=== PATIENT | male | born 1970 | race Two or more races ===

== ENCOUNTER 2023-05-08 15:20 | Inpatient (IN) | payer MEDICAID ==
[~2023-05-08] VITALS: Ht 167.6 cm; Wt 104.3 kg
[2023-05-08] MEDS ORDERED: DIAZEPAM 5 MG/ML 2ML CPJ IV NR (18:30)
[2023-05-08 18:38] LABS: BASOPHILS % 0.4 % (0.0-2.0); EOSINOPHILS % 1.1 % (0.0-5.0); HEMATOCRIT. 47.7 % (42.0-52.0); HEMOGLOBIN. 15.6 g/dL (14.0-18.0); LYMPHOCYTES % 29.4 % (20.0-50.0); MEAN CORPUSCULAR HEMOGLOBIN 30.2 pg (28.0-32.0); MEAN CORPUSCULAR HGB CONC 32.6 g/dL (31.0-37.0); MEAN CORPUSCULAR VOLUME 92.5 fL (80.0-94.0); MEAN PLATELET VOLUME 7.9 fl (7.4-10.4); MONOCYTES % 12.5 % (2.0-8.0); NEUTROPHILS % 56.6 % (40.0-76.0); PLATELET 326 x1000/uL (130-400); RED BLOOD CELL COUNT 5.16 mill/uL (4.7-6.1); WHITE BLOOD COUNT 7.4 x1000/uL (4.5-11.0)
[2023-05-08 18:46] LABS: ALANINE AMINOTRANSFERASE 64 IU/L (10-49); ALBUMIN 4.3 g/dL (3.2-4.8); ASPARTATE AMINOTRANSFERASE 97 IU/L (<34); BILIRUBIN TOTAL 0.3 mg/dL (0.1-1.0); CALCIUM 9.5 mg/dL (8.7-10.4); CARBON DIOXIDE 19 mEq/L (21-32); CHLORIDE 103 mEq/L (98-107); CREATININE 0.6 mg/dL (0.6-1.3); GLUCOSE 77 mg/dL (70-105); POTASSIUM 3.8 mEq/L (3.5-5.1); SODIUM 142 mEq/L (136-145); UREA NITROGEN BLOOD 8 mg/dL (9-23)
[2023-05-08 19:29] LABS: TROPONIN I HIGH SENSITIVITY 18 ng/L (3.0-53)
[2023-05-09] MEDS ORDERED: DIAZEPAM 5 MG/ML 2ML CPJ IV NR (03:15)
[2023-05-09] MEDS ORDERED: DOCUSATE SODIUM 100MG CAPSULE PO PRN (07:15)
[2023-05-09] MEDS ORDERED: LORAZEPAM 0.5MG TABLET PO PRN (07:15)
[2023-05-09] MEDS ORDERED: IPRATROPIUM/ALBUTEROL 0.5-3(2.5)MG/3ML NEB HHN PRN (07:15)
[2023-05-09] MEDS ORDERED: MAGNESIUM/ALUMINUM HYDROXIDE/SIMETHICONE 30ML UDC PO PRN (07:15)
[2023-05-09] MEDS ORDERED: ONDANSETRON HCL 4MG/2ML INJ IV PRN (07:15)
[2023-05-09] MEDS ORDERED: CLONIDINE 0.1MG TABLET PO PRN (07:15)
[2023-05-09] MEDS ORDERED: ACETAMINOPHEN 325MG TABLET PO PRN (07:15)
[2023-05-09] MEDS ORDERED: GUAIFENESIN 200MG/10ML SUGAR FREE UDC PO PRN (07:15)
[2023-05-09] MEDS: ENOXAPARIN 30MG/0.3ML SYR SUBCUT SCH ×2 (08:00→20:26)
[2023-05-09] MEDS ORDERED: MVI, ADULT NO.1 10 ML, FOLIC ACID 1 MG, THIAMINE HCL 100 MG in SODIUM CHLORIDE 0.9% 1,0... IV NR ×4 (08:00)
[2023-05-09] MEDS: PANTOPRAZOLE 40MG DR TABLET PO SCH (09:15)
[2023-05-09 13:23] LABS: ALANINE AMINOTRANSFERASE 67 IU/L (10-49); ALBUMIN 4.3 g/dL (3.2-4.8); ASPARTATE AMINOTRANSFERASE 101 IU/L (<34); BILIRUBIN DIRECT 0.4 mg/dL (<=3.0); CHOLESTEROL 186 mg/dL (<200); HDL CHOLESTEROL 73 mg/dL (>55); LDL CHOLESTEROL 73 mg/dL (5-100); PROTEIN TOTAL 7.8 g/dL (6.0-8.3); THYROID STIMULATING HORMONE 10.09 uIU/mL (0.55-4.78); TRIGLYCERIDE 122 mg/dL (0-150)
[2023-05-09 13:30] LABS: ETHANOL BLOOD < 10 mg/dL (<10)
[2023-05-09] MEDS: ACETAMINOPHEN 325MG TABLET PO PRN ×2 (15:51→20:52)
[2023-05-09 17:00] VITALS: BP 130/84; PULSE 99; RESP 20; TEMP 98.7
[2023-05-09] MEDS ORDERED: LORAZEPAM 2MG/ML INJ IV PRN (17:30)
[2023-05-09 18:28] LABS: IRON 283 ug/dL (65-175); T4 FREE 1.19 ng/dL (0.89-1.76); TOTAL IRON BINDING CAPACITY 332 ug/dl (250-425)
[2023-05-09 18:49] LABS: CREATINE KINASE 447 IU/L (46-171); TROPONIN I HIGH SENSITIVITY 25 ng/L (3.0-53)
[2023-05-09 20:00] VITALS: BP 132/75; PULSE 102; RESP 19; TEMP 98.7
[2023-05-09 20:09] LABS: FERRITIN 198 ng/mL (22-322); FOLIC ACID (FOLATE) SERUM 18.58 ng/mL (>5.38); VITAMIN B12 SERUM 610 pg/mL (211-911)
[2023-05-09] MEDS: ATORVASTATIN CALCIUM 40MG TABLET PO SCH (20:26)
[2023-05-09] MEDS: LORAZEPAM 1MG TABLET PO PRN (20:33)
[2023-05-09] MEDS ORDERED: DULO30CA52 PO (21:04)
[2023-05-09] MEDS ORDERED: PROPANOLOL PO (21:04)
[2023-05-09] MEDS ORDERED: FAMO20TA8 PO (21:04)
[2023-05-09] MEDS ORDERED: ARIP15TA14 PO (21:04)
[2023-05-09] MEDS ORDERED: GABA800T97 PO (21:04)
[2023-05-09] MEDS ORDERED: LAMO25TA9 PO (21:05)
[2023-05-09] MEDS ORDERED: LORAZEPAM 2MG/ML INJ IV NR (23:45)
[2023-05-10] VITALS: BP 135/77; PULSE 80; RESP 19; TEMP 98.2
[2023-05-10 00:36] LABS: CREATINE KINASE 359 IU/L (46-171); TROPONIN I HIGH SENSITIVITY 23 ng/L (3.0-53)
[2023-05-10 04:00] VITALS: BP 139/71; PULSE 74; RESP 19; TEMP 97.6
[2023-05-10] MEDS: LORAZEPAM 1MG TABLET PO PRN ×3 (05:57→21:07)
[2023-05-10] MEDS: PANTOPRAZOLE 40MG DR TABLET PO SCH (05:57)
[2023-05-10] MEDS ORDERED: LORAZEPAM 2MG/ML INJ IV PRN (07:30)
[2023-05-10 07:52] LABS: HEMOGLOBIN 12.6 g/dL (14.0-18.0); MEAN CORPUSCULAR HEMOGLOBIN 29.9 pg (28.0-32.0); MEAN CORPUSCULAR HGB CONC 33.1 g/dL (31.0-37.0); MEAN CORPUSCULAR VOLUME 90.2 fL (80.0-94.0); PLATELET 226 x1000/uL (130-400); RED BLOOD CELL COUNT 4.22 mill/uL (4.7-6.1); RED CELL DISTRIBUTION WIDTH 15.1 % (11.6-14.6); WHITE BLOOD COUNT 4.8 x1000/uL (4.5-11.0)
[2023-05-10 08:00] VITALS: BP 138/73; PULSE 81; RESP 20; TEMP 96.8
[2023-05-10 08:00] LABS: CALCIUM 9.1 mg/dL (8.7-10.4); CARBON DIOXIDE 23 mEq/L (21-32); CHLORIDE 104 mEq/L (98-107); CREATININE 0.6 mg/dL (0.6-1.3); GLUCOSE 88 mg/dL (70-105); POTASSIUM 3.4 mEq/L (3.5-5.1); SODIUM 139 mEq/L (136-145); UREA NITROGEN BLOOD 9 mg/dL (9-23)
[2023-05-10] MEDS: LAMOTRIGINE 25MG TABLET PO SCH (10:09)
[2023-05-10] MEDS: LOSARTAN 25 MG TABLET PO SCH (10:09)
[2023-05-10] MEDS: ENOXAPARIN 30MG/0.3ML SYR SUBCUT SCH ×2 (10:09→21:07)
[2023-05-10] MEDS: AMLODIPINE 5MG TABLET PO SCH (10:10)
[2023-05-10 12:00] VITALS: BP 122/71; PULSE 79; RESP 18; TEMP 97
[2023-05-10] MEDS ORDERED: SODIUM CHLORIDE 0.9% 1,000 ML IV SCH (14:30)
[2023-05-10 16:00] VITALS: BP 130/76; PULSE 77; RESP 18; TEMP 97.6
[2023-05-10] MEDS: GABAPENTIN 100MG CAPSULE PO SCH ×2 (16:16→21:07)
[2023-05-10] MEDS ORDERED: POTASSIUM CHLORIDE 20MEQ TABLET SR PO NR (17:15)
[2023-05-10 17:18] LABS: CLARITY URINE CLEAR (CLEAR); COLOR URINE YELLOW (YELLOW); GLUCOSE URINE NEGATIVE (NEGATIVE); KETONES URINE NEGATIVE (NEGATIVE); LEUKOCYTE ESTERASE URINE NEGATIVE (NEGATIVE); NITRITE URINE NEGATIVE (NEGATIVE); OCCULT BLOOD URINE NEGATIVE (NEGATIVE); PH URINE 7.5 (4.5-8.0); PROTEIN URINE NEGATIVE (NEGATIVE); SPECIFIC GRAVITY URINE 1.007 (1.005-1.030)
[2023-05-10 17:30] LABS: *AMPHETAMINES SCREEN URINE NEGATIVE (NEGATIVE); *BARBITURATES SCREEN URINE NEGATIVE (NEGATIVE); *BENZODIAZEPINES SCREEN URINE PRESUMPTIVE POSITIVE (NEGATIVE); *COCAINE SCREEN URINE NEGATIVE (NEGATIVE); CANNABINOID URINE SCREEN NEGATIVE (NEGATIVE); ECSTASY MDMA SCREEN URINE NEGATIVE (NEGATIVE); METHADONE URINE SCREEN Neg (NEGATIVE); OPIATES URINE SCREEN NEGATIVE (NEGATIVE); PHENCYCLIDINE URINE SCREEN NEGATIVE (NEGATIVE)
[2023-05-10 20:00] VITALS: BP 132/76; PULSE 85; RESP 18; TEMP 99.3
[2023-05-10] MEDS: FAMOTIDINE 20MG TABLET PO SCH (21:07)
[2023-05-10] MEDS: ATORVASTATIN CALCIUM 40MG TABLET PO SCH (21:07)
[2023-05-10] MEDS ORDERED: LORAZEPAM 1MG TABLET PO NR (23:50)
[2023-05-11] VITALS: BP 142/96; PULSE 93; RESP 20; TEMP 98.2
[2023-05-11] MEDS: ACETAMINOPHEN 325MG TABLET PO PRN ×2 (00:01→04:36)
[2023-05-11 04:00] VITALS: BP 118/76; PULSE 74; RESP 20; TEMP 98.1
[2023-05-11] MEDS: GABAPENTIN 100MG CAPSULE PO SCH ×3 (05:24→21:28)
[2023-05-11] MEDS: LORAZEPAM 1MG TABLET PO PRN ×3 (05:25→17:09)
[2023-05-11 08:00] VITALS: BP 129/89; PULSE 94; RESP 20; TEMP 97.5
[2023-05-11] MEDS: ENOXAPARIN 30MG/0.3ML SYR SUBCUT SCH ×2 (09:26→21:28)
[2023-05-11] MEDS: LOSARTAN 25 MG TABLET PO SCH (09:31)
[2023-05-11] MEDS: LAMOTRIGINE 25MG TABLET PO SCH (09:31)
[2023-05-11] MEDS: AMLODIPINE 5MG TABLET PO SCH (09:31)
[2023-05-11] MEDS: FAMOTIDINE 20MG TABLET PO SCH ×2 (09:36→21:28)
[2023-05-11] MEDS: METOPROLOL TARTRATE 25MG TABLET PO SCH ×2 (10:47→21:28)
[2023-05-11 12:00] VITALS: BP 122/88; PULSE 100; RESP 18; TEMP 97.9
[2023-05-11 16:00] VITALS: BP 144/90; PULSE 81; RESP 18; TEMP 98.1
[2023-05-11 20:00] VITALS: BP 140/85; PULSE 88; RESP 20; TEMP 98.3
[2023-05-11] MEDS ORDERED: KETOROLAC 15MG/ML VIAL IM NR (21:15)
[2023-05-11] MEDS: ATORVASTATIN CALCIUM 40MG TABLET PO SCH (21:28)
[2023-05-12] VITALS: BP 150/80; PULSE 85; RESP 20; TEMP 98.2
[2023-05-12] MEDS: LORAZEPAM 1MG TABLET PO PRN ×2 (00:40→09:12)
[2023-05-12 04:00] VITALS: BP 166/95; PULSE 90; RESP 20; TEMP 98
[2023-05-12] MEDS: ACETAMINOPHEN 325MG TABLET PO PRN (05:32)
[2023-05-12] MEDS: GABAPENTIN 100MG CAPSULE PO SCH ×2 (05:32→13:22)
[2023-05-12 08:00] VITALS: BP 118/76; PULSE 84; RESP 18; TEMP 97.3
[2023-05-12] MEDS: ENOXAPARIN 30MG/0.3ML SYR SUBCUT SCH (08:55)
[2023-05-12] MEDS: FAMOTIDINE 20MG TABLET PO SCH (08:55)
[2023-05-12] MEDS: LAMOTRIGINE 25MG TABLET PO SCH (08:55)
[2023-05-12] MEDS ORDERED: METO25TA6 PO (09:00)
[2023-05-12] MEDS ORDERED: AMLO5TAB88 PO (09:00)
[2023-05-12] MEDS: METOPROLOL TARTRATE 25MG TABLET PO SCH (09:12)
[2023-05-12] MEDS: LOSARTAN 25 MG TABLET PO SCH (09:13)
[2023-05-12] MEDS: AMLODIPINE 5MG TABLET PO SCH (09:13)
[2023-05-12 12:00] VITALS: BP 120/79; PULSE 79; RESP 16; TEMP 98
[2023-05-12 13:52] VITALS: BP 118/76; PULSE 84; TEMP 97.3; O2SAT 100
[2023-05-12] MEDS ORDERED: ONDANSETRON 4MG ODT PO PRN (14:37)
== END 2023-05-12 14:20 | disposition home or self-care (01) | DRG 52 ==
LOC: ER 15:20 → 7WST 05-09 16:52
PROVIDERS: ADMIT Internal Medicine; ATTEND Internal Medicine
DX: G92.8 Other toxic encephalopathy (principal); M62.82 Rhabdomyolysis; K76.0 Fatty (change of) liver, not elsewhere classified; F10.229 Alcohol dependence with intoxication, unspecified; K42.9 Umbilical hernia without obstruction or gangrene; E78.00 Pure hypercholesterolemia, unspecified; X58.XXXA Exposure to other specified factors, initial encounter; F32.A Depression, unspecified; F41.9 Anxiety disorder, unspecified; I10 Essential (primary) hypertension; M19.012 Primary osteoarthritis, left shoulder; M48.02 Spinal stenosis, cervical region; S01.511A Laceration without foreign body of lip, initial encounter; Z59.00 Homelessness unspecified; Z79.899 Other long term (current) drug therapy; Z86.73 Personal history of transient ischemic attack (TIA), and cerebral infarction without residual deficits
CPT/HCPCS: 36415; 70551; 71045; 72141; 73030; 74176; 80048; 80053; 80061; 80076; 80305; 80320; 81003; 82270; 82550; 82607; 82728; 82746; 83036; 83540; 83550; 84145; 84439; 84443; 84484; 85025; 85027; 85651; 93005; 93970; 97162; 97166; 99285; C1893; J1650; J1885; J2060; J3411; J3490; J7030; G0480